=== PATIENT | female | born 1945 | race Caucasian/White ===

== ENCOUNTER 2024-01-06 09:14 | Emergency (ER) | payer MEDICARE, OTHER, SELFPAY ==
[2024-01-06 09:25] VITALS: BP 112/72
--- NOTE | 2024-01-06 09:46 | ED.GENMED ---
Addendum entered and electronically signed by Drake Montano PA-C 01/08/24 07:06:
Urine culture shows greater than 100,000 colony-forming units of gram-negative bacilli. Started on Keflex. Sensitivities pending
Original Note:
History of Present Illness
General
Chief Complaint: Fatigue
Source: patient
Exam Limitations: none
Time Seen by Provider: 01/06/24 09:37
Nursing documentation reviewed up to this point in time: agreed with
History of Present Illness
History of Present Illness:
78 yr old female presents to the ER for evaluation. Patient was called by her family doctor this morning stating that her creatinine was elevated and her platelets were low and she needed to come to the ER.
Patient has a history of hypertension acid reflux and is on Pepcid and valsartan. She reports over 8 years ago she had a really a kidney problem that was associate with Bactrim. 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 She is making
urine normally denies any abdominal pain nausea vomiting fever chills. She does feel tired.
Past History
Past History
ED Past Medical History: GERD and HTN
ED Past Surgical History: Gynecological and Other (Mohs surgery)
Social History
Tobacco: Non-smoker
Alcohol: Occasional
Personal:
Employment: Retired
Review of Systems
Review of Systems
Allergies reviewed?: Yes
All Other Systems: ROS reviewed and negative except as documented in HPI and ROS
Constitutional: Reports fatigue; Denies fever or chills
Respiratory: Reports no symptoms
Cardiac: Reports no symptoms
ABD/GI: Reports no symptoms; Denies abdominal pain, nausea, vomiting or diarrhea
: Reports no symptoms
Musculoskeletal: Reports no symptoms
Skin: Reports no symptoms
Neurological: Reports no symptoms
Psychiatric: Reports no symptoms
Phy Exam
General Physical Exam
General Presentation: no apparent distress
General age: appears stated age
General Skin: warm and dry
General Habitus: normal
General Mental: alert
General Hydration: appears well hydrated
Cardiovascular Exam
Cardiovascular Exam: regular rate/rhythm, no murmur and normal peripheral pulses
Pulmonary Exam
Pulmonary Exam: lungs clear and no respiratory distress
Neurological Exam
Neurological Exam: alert and oriented x3
Musculoskeletal Exam
Musculoskeletal Exam: full ROM
Skin Exam
Skin Exam: normal color and warm/dry
Psychiatric Exam
Psychiatric Exam: normal mood/affect
Course
Orders/Labs/Results
Orders:
Orders
01/06/24 09:39
IV Insert/Care/Rem.- Treatment PRN
01/06/24 10:17
Complete Blood Count/With Diff Urgent
Comprehensive Metabolic Panel Urgent
Urinalysis Reflex To Culture Urgent
Date Specimen was Collected: 01/06/24
Time Specimen was Collected: 10:10
Urine Microscopic Reflex Cult Urgent
Urine Culture Urgent
JANIE Source: U
Specimen Description:
Date Specimen was Collected: 01/06/24
Time Specimen was Collected: 10:10
01/06/24 12:19
US Renal With Bladder Urgent
Comment:
Reason For Exam: renal insufficiency
01/06/24 14:33
Cephalexin Monohydrate [Keflex] 500 mg PO NOW STA
Abnormal Lab Results
01/06/24
10:17
MCH 32.3 H pg
(27.0-31.0)
Plt Count 47 L 10^3/uL
(130-400)
Absolute Monos (auto) 0.7 H 10^3/uL
(0.1-0.6)
BUN 44 H mg/dl
(7-17)
Creatinine 2.6 H mg/dL
(0.6-1.0)
Glucose 108 H mg/dl
(70-99)
Calcium 12.2 H mg/dl
(8.4-10.2)
Ur Occult Blood Reflex 1+ A
(Negative)
Urine Bilirubin 1+ A
(Negative)
Leukocyte Esterase Rfl 2+ A
(Negative)
Urine WBC (Reflex) 30-40 A /HPF
(0-5)
Urine Bacteria (Reflex) Moderate A
(Negative)
01/06/24 10:17
01/06/24 10:17
Vital Signs
Initial and Last Documented VS:
Initial Vital Signs
Temp Pulse Resp BP Pulse Ox
98.3 F 96 16 112/72 98
01/06/24 09:25 01/06/24 09:25 01/06/24 09:25 01/06/24 09:25 01/06/24 09:25
Last Documented Vital Signs
Temp Pulse Resp BP Pulse Ox
98.3 F 85 20 124/82 97
01/06/24 09:25 01/06/24 12:42 01/06/24 12:42 01/06/24 12:49 01/06/24 12:42
MDM/Problems Addressed
MDM/Problems Addressed:
Patient is a 78-year-old female with history of high blood pressure on valsartan, reflux on PPI presents to the ER for evaluation. Patient was sent by family doctor for elevated creatinine. Patient has been fatigued over the past several weeks.
As document years ago patient had a acute kidney issues having been on Bactrim. She does report recently her family doctor has been watching her creatinine. Patient presents here awake alert no acute distress she does complain of fatigue however
she is nontoxic denies any recent fevers. Hemoglobin stable 15. Patient's BUN is 44 creatinine 2.6 creatinine was 1.5 in 2018. Patient is making urine no difficulty denies any UTI symptoms. Patient has 30�40 white blood cells in urine with
negative nitrates. In
Case reviewed with nephrology on-call Dr. Cabrera,who does recommend renal bladder ultrasound and if negative can be discharged home with outpatient follow-up however he does recommend to hold valsartan.
1427: Ultrasound of kidneys negative for hydro bilateral renal cortical thickening most suggestive chronic medical renal disease. As previously discussed will DC home with instructions to stop valsartan. She has no s/s of UTI as d/c 30-40 wbc + 2
leuks neg nitrates low so she does have 2+ leuks as d/c w/ DR Matthews will treat with keflex . Discussed close outpatient follow-up with nephrology.
*Radiology
Radiology exam reviewed: radiology read reviewed (No evidence for hydro bilateral renal cortical thickening suggesting chronic medical renal disease)
*Pulse Oximetry
Patient hypoxic: no
*Critical Care Note
Total Time (30-74mins, 75-104mins- exclusive of procedures): Not Applicable
Patient Management
Discussion with other providers: Associate Professor Of Music ([facility] )
ED Attending Note
-
Portions of this chart may have been created with voice recognition software.� Occasional wrong word or��sound alike� substitutions may have occurred due to the inherent limitations of voice recognition software.
Discharge Plan
Departure
Patient Disposition: Home (Routine Discharge)
Date of Disposition: 01/06/24
Time of Disposition: 14:33
Patient with high blood pressure during this ER visit?: No
Condition: Fair
Covid-19: Not Applicable
Discharge Problem:
Acute renal insufficiency, Acute UTI
Instructions: Urinary Tract Infection, Adult (DC)
Prescriptions:
New
cephalexin 500 mg capsule
500 mg PO BID 14 Days Qty: 28 0RF
No Action
famotidine 40 mg Tablet
40 mg PO HS
valsartan 80 mg Tablet
80 mg PO HS
Tums E-X 300 mg (750 mg) Tablet,Chewable
600 mg PO 5/D PRN (Reason: gerd)
acetaminophen [Tylenol Extra Strength] 500 mg Tablet
1,000 mg PO BIDPRN PRN (Reason: mild pain)
Benefiber (guar gum) Packet
1 tbsp PO DAILYPRN PRN (Reason: constipation)
Patient Comments:
01/06/2024, has taken consistently for the past 3 days per pt.
hydrocortisone 1 % Cream
1 applic TOPICAL BID PRN (Reason: itchy rectum)
Patient Comments:
01/06/2024, OTC.
Multivitamin With D
1 tab PO DAILYPRN PRN (Reason: supplement)
Referrals:
Álvaro Cabrera V., DO [Active] -
NONE,* [Active] -
Activity Restrictions/Additional Instructions:
As discussed please call nephrology tomorrow for an appointment for further evaluation of your abnormal kidney function. In addition it appears that you have a UTI. Antibiotic was sent to your pharmacy you were given the first dose here in the ER.
Stop valsartan. Please also call your family doctor to make an appointment for reevaluation of symptoms. Return if any worsening of symptoms.
Interventions
Interventions:
*Risk Screen - Suicide Last Done: 01/06/24 09:25
*General Assessment Last Done: 01/06/24 09:25
*Neglect/Abuse Screening Last Done: 01/06/24 09:25
Discharge Date and Time
Print Language: UKRAINIAN
[2024-01-06 10:26] LABS: Urine Albumin Trace (Neg - Trace); Urine Bilirubin 1+ (Negative); Urine Character Slightly Cloudy (Clear); Urine Color Yellow; Urine Glucose Negative (Negative); Urine Ketone Negative (Negative); Urine Leukocyte 2+ (Negative); Urine Nitrite Negative (Negative); Urine Occult Blood 1+ (Negative); Urine Specific Gravity 1.015 (<1.030); Urine Urobilinogen Negative (Neg - 1+)
[2024-01-06 10:27] LABS: % Basophils 1.1 % (0-2); % Eosinophils 1.7 % (0-6); % Immature Granulocytes 0.1 % (0-0.5); % Lymphocytes 27.8 % (20.5-51.1); % Monocytes 9.1 % (1.7-9.3); % Neutrophils 60.2 % (42.2-75.2); Absolute Basophils 0.1 10^3/uL (0-0.2); Absolute Eosinophils 0.1 10^3/uL (0-0.7); Absolute Lymphocytes 2.2 10^3/uL (1.2-3.4); Absolute Monocytes 0.7 10^3/uL (0.1-0.6); Absolute Neutrophils 4.9 10^3/uL (1.4-6.5); Hematocrit 42.9 % (37.0-47.0); Mean Corpuscular Hgb 32.3 pg (27.0-31.0); Mean Corpuscular Volume 92.3 fL (81.0-99.0); Nucleated Red Blood Cells % 0 %; Red Blood Cell Count 4.65 10^6/uL (4.20-5.40); Red Cell Dist. Width 11.7 % (11.5-14.5); White Blood Cell Count 8.1 10^3/uL (4.8-10.8)
[2024-01-06 10:34] LABS: Urine Squamous Cell 0-2 /LPF (Few)
[2024-01-06 10:35] LABS: Urine Bacteria Moderate (Negative); Urine Calcium Oxalate Crystals Present; Urine Red Blood Cell 0-2 /HPF (0-2); Urine White Cell 30-40 /HPF (0-5)
[2024-01-06 10:37] LABS: ALT (SGPT) 23 U/L (0-35); AST (SGOT) 30 U/L (14-36); Albumin 4.7 g/dl (3.5-5.0); Alkaline Phosphatase 79 U/L (38-126); Blood Urea Nitrogen 44 mg/dl (7-17); Calcium 12.2 mg/dl (8.4-10.2); Carbon Dioxide 26 mmol/L (22-30); Chloride 103 mmol/L (98-107); Glucose 108 mg/dl (70-99); Potassium 4.6 mmol/L (3.5-5.1); Sodium 139 mmol/L (135-145); Total Bilirubin 0.7 mg/dl (0.2-1.3); Total Protein 7.8 g/dl (6.3-8.2); eGFR 18.32
[2024-01-06 10:48] LABS: Mean Platelet Volume 10.3 fL (7.4-10.4); Platelet Count 47 10^3/uL (130-400)
[2024-01-06 12:49] VITALS: BP 124/82
[2024-01-06] MEDS: KEFLEX 500 MG PO (14:54)
[2024-01-06 15:01] VITALS: BP 116/81
== END 2024-01-06 15:06 | disposition home or self-care (01) ==
LOC: EMR 09:14
PROVIDERS: Nurse Practitioner; EMERGENCY PHYSICIAN Emergency Medicine; FAMILY PHYSICIAN Family Medicine
DX: N39.0 Urinary tract infection, site not specified (principal); N28.9 Disorder of kidney and ureter, unspecified; I10 Essential (primary) hypertension; K21.9 Gastro-esophageal reflux disease without esophagitis
CPT/HCPCS: 99284; 76770; 80053; 81003; 81015; 85025; 87077; 87086; 87186

== ENCOUNTER → 2024-02-11 06:47 | Outpatient (REF) | payer MEDICARE, OTHER, SELFPAY ==
[2024-02-11 07:30] VITALS: BP 151/83; BP_SYST 80
[2024-02-11 07:30] LABS: % Eosinophils 3.7 % (0-6); % Immature Granulocytes 0.2 % (0-0.5); % Lymphocytes 26.9 % (20.5-51.1); % Monocytes 9.6 % (1.7-9.3); % Neutrophils 58.6 % (42.2-75.2); Absolute Basophils 0.1 10^3/uL (0-0.2); Absolute Eosinophils 0.4 10^3/uL (0-0.7); Absolute Lymphocytes 2.7 10^3/uL (1.2-3.4); Absolute Neutrophils 5.9 10^3/uL (1.4-6.5); Hematocrit 41.3 % (37.0-47.0); Hemoglobin 14.1 g/dL (12.0-16.0); Mean Corp Hgb Conc. 34.1 g/dL (33.0-37.0); Mean Corpuscular Hgb 31.9 pg (27.0-31.0); Mean Corpuscular Volume 93.4 fL (81.0-99.0); Nucleated Red Blood Cells % 0 %; Red Blood Cell Count 4.42 10^6/uL (4.20-5.40); Red Cell Dist. Width 11.9 % (11.5-14.5)
[2024-02-11 07:33] LABS: PT 13.2 Sec (11.4-14.6)
[2024-02-11 08:00] VITALS: BP 134/84
[2024-02-11 08:18] LABS: Mean Platelet Volume 11.7 fL (7.4-10.4); Platelet Count 37 10^3/uL (130-400)
[2024-02-11] MEDS: ATIVAN 0.5 MG IV (08:23)
[2024-02-11] MEDS: FLUSH (NSS) 1 FLUSH IV (08:23)
[2024-02-11] MEDS: NSS (PRESERVATIVE FREE) 0.25 ML IV (08:23)
== END ==
LOC: RADI 06:47
PROVIDERS: ATTENDING PHYSICIAN Internal Medicine Hematology & Oncology; FAMILY PHYSICIAN Family Medicine; REFERRING PHYSICIAN Specialist
DX: D47.2 Monoclonal gammopathy (principal); D69.6 Thrombocytopenia, unspecified; D68.8 Other specified coagulation defects
CPT/HCPCS: 88305; 88311; 88312; 36415; 38222; 77012; 85025; 85610; 88313; 88341; 88342

== ENCOUNTER → 2024-06-06 08:53 | Outpatient (REF) | payer MEDICARE, OTHER, SELFPAY | LOC: HWWDC 08:53 | PROVIDERS: ATTENDING PHYSICIAN Obstetrics & Gynecology; FAMILY PHYSICIAN Family Medicine | DX: Z12.31 Encounter for screening mammogram for malignant neoplasm of breast (principal) | CPT/HCPCS: 77063; 77067 ==

== ENCOUNTER → 2024-06-14 07:50 | Outpatient (REF) | payer MEDICARE, OTHER, SELFPAY ==
[2024-06-14 08:46] LABS: Hematocrit 44.9 % (37.0-47.0); Hemoglobin 14.5 g/dL (12.0-16.0); Mean Corp Hgb Conc. 32.3 g/dL (33.0-37.0); Mean Platelet Volume 12.1 fL (7.4-10.4); Platelet Count 33 10^3/uL (130-400); Red Blood Cell Count 4.83 10^6/uL (4.20-5.40); Red Cell Dist. Width 12.4 % (11.5-14.5); White Blood Cell Count 8.7 10^3/uL (4.8-10.8)
== END ==
LOC: REG 07:50
PROVIDERS: ATTENDING PHYSICIAN Internal Medicine Gastroenterology; FAMILY PHYSICIAN Family Medicine; OTHER PHYSICIAN Specialist; REFERRING PHYSICIAN Internal Medicine Hematology & Oncology
DX: R94.8 Abnormal results of function studies of other organs and systems (principal)
CPT/HCPCS: 36415; 85027; 86850; 86900; 86901

== ENCOUNTER 2024-06-16 07:00 | Day surgery (SDC) | payer MEDICARE, OTHER, SELFPAY ==
[2024-06-16] VITALS (7 sets, daily range): BP systolic 110–145; BP diastolic 72–82; BMI 24.5
== END 2024-06-16 12:35 | disposition home or self-care (01) ==
LOC: SDS 07:00
PROVIDERS: ATTENDING PHYSICIAN Internal Medicine Gastroenterology
DX: K21.00 Gastro-esophageal reflux disease with esophagitis, without bleeding (principal); K31.89 Other diseases of stomach and duodenum; K44.9 Diaphragmatic hernia without obstruction or gangrene; R12 Heartburn; R93.3 Abnormal findings on diagnostic imaging of other parts of digestive tract
CPT/HCPCS: 43239; 86850; 86900; 86901; P9073

== ENCOUNTER 2024-09-22 05:44 | Outpatient (RCR) | payer MEDICARE, OTHER, SELFPAY | END 2024-09-22 23:59 | disposition home or self-care (01) | LOC: RPT 05:44 | PROVIDERS: ATTENDING PHYSICIAN Internal Medicine Gastroenterology; FAMILY PHYSICIAN Family Medicine | DX: M62.89 Other specified disorders of muscle (principal); Z73.6 Limitation of activities due to disability | CPT/HCPCS: 97161; 97530 ==

== ENCOUNTER 2024-10-16 11:54 | Outpatient (RCR) | payer MEDICARE, OTHER, SELFPAY | END 2024-10-16 23:59 | disposition home or self-care (01) | LOC: RPT 11:54 | PROVIDERS: ATTENDING PHYSICIAN Internal Medicine Gastroenterology; FAMILY PHYSICIAN Family Medicine | DX: M62.89 Other specified disorders of muscle (principal); Z73.6 Limitation of activities due to disability; R35.0 Frequency of micturition; N39.3 Stress incontinence (female) (male) | CPT/HCPCS: 97110; 97530 ==

== ENCOUNTER 2024-11-29 10:18 | Outpatient (RCR) | payer MEDICARE, OTHER, SELFPAY | END 2024-11-29 23:59 | disposition home or self-care (01) | LOC: RPT 10:18 | PROVIDERS: ATTENDING PHYSICIAN Internal Medicine Gastroenterology; FAMILY PHYSICIAN Family Medicine | DX: M62.89 Other specified disorders of muscle (principal); Z73.6 Limitation of activities due to disability; R35.0 Frequency of micturition; N39.3 Stress incontinence (female) (male) | CPT/HCPCS: 97110 ==

== ENCOUNTER 2024-12-11 10:56 | Outpatient (RCR) | payer MEDICARE, OTHER, SELFPAY | END 2024-12-11 12:27 | disposition home or self-care (01) | LOC: RPT 10:56 | PROVIDERS: ATTENDING PHYSICIAN Internal Medicine Gastroenterology; FAMILY PHYSICIAN Family Medicine | DX: M62.89 Other specified disorders of muscle (principal); Z73.6 Limitation of activities due to disability; R35.0 Frequency of micturition; N39.3 Stress incontinence (female) (male) | CPT/HCPCS: 97110 ==

== ENCOUNTER → 2025-02-07 13:14 | Outpatient (REF) | payer MEDICARE, OTHER, SELFPAY | LOC: HWRAD 13:14 | PROVIDERS: ATTENDING PHYSICIAN Family Medicine | DX: M79.604 Pain in right leg (principal) | CPT/HCPCS: 72110; 73502 ==

== ENCOUNTER → 2025-02-19 08:27 | Outpatient (REF) | payer MEDICARE, OTHER, SELFPAY | LOC: RAD 08:27 | PROVIDERS: ATTENDING PHYSICIAN Family Medicine | DX: M79.604 Pain in right leg (principal) | CPT/HCPCS: 93971 ==

== ENCOUNTER → 2025-06-07 09:05 | Outpatient (REF) | payer MEDICARE, OTHER, SELFPAY | LOC: HWWDC 09:05 | PROVIDERS: ATTENDING PHYSICIAN Family Medicine; OTHER PHYSICIAN Internal Medicine Hematology & Oncology; REFERRING PHYSICIAN Obstetrics & Gynecology | DX: Z12.31 Encounter for screening mammogram for malignant neoplasm of breast (principal) | CPT/HCPCS: 77063; 77067 ==

== ENCOUNTER → 2025-06-21 06:44 | Outpatient (REF) | payer MEDICARE, OTHER, SELFPAY | LOC: RAD 06:44 | PROVIDERS: ATTENDING PHYSICIAN Internal Medicine Gastroenterology; FAMILY PHYSICIAN Family Medicine; REFERRING PHYSICIAN Internal Medicine Hematology & Oncology | DX: K58.1 Irritable bowel syndrome with constipation (principal) | CPT/HCPCS: 74270 ==